=== PATIENT | female | born 1950 | race Caucasian/White ===

== ENCOUNTER 2016-12-06 21:04 | Emergency (ER) | payer MEDICARE, OTHER ==
--- NOTE | 2016-12-06 21:30 | EDM.PDOC ---
ED HPI GENERAL MEDICAL PROBLEM - General Chief Complaint: Abdominal Pain Stated Complaint: nausea,vomiting, abd pain Time Seen by Provider: 12/06/16 21:40 Source of Information: Reports: Patient History Limitations: Reports: No Limitations - History of Present Illness INITIAL COMMENTS - FREE TEXT/NARRATIVE: She states that for the past 2 days she's been sick started with nasal congestion for throat days she started having abdominal cramps with multiple emesis he had an emesis in the ER which was about 100 mL of bile color there was no solid food in Onset: Gradual (For the past 2 days) Onset Date: 12/05/16 Duration: Hour(s):, Getting Worse Location: Reports: Abdomen (Crampy abdominal pain) Quality: Reports: Pressure, Sharp, Stabbing Severity: Severe Improves with: Reports: None Worsens with: Reports: Movement Context: Reports: Sick Contact Associated Symptoms: Reports: Cough, Fever/Chills, Loss of Appetite, Nausea/ Vomiting, Weakness Treatments [employer]IL[employer] 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: Other (See Below) (Status post tubal ligation) ED ROS GENERAL - Review of Systems Review Of Systems: See Below Constitutional: Reports: Chills, Weakness, Decreased Appetite HEENT: Reports: No Symptoms Respiratory: Reports: Shortness of Breath, Cough Cardiovascular: Reports: Other (History of ND unknown) Endocrine: Reports: No Symptoms GI/Abdominal: Reports: Abdominal Pain, Constipation, Decreased Appetite, Nausea , Vomiting : Reports: No Symptoms Musculoskeletal: Reports: No Symptoms Skin: Reports: No Symptoms Neurological: Reports: No Symptoms ED EXAM, GI/ABD - Physical Exam Exam: See Below Exam Limited By: No Limitations General Appearance: Alert, Obtunded, Moderate Distress, Active Emesis Ears: Normal External Exam, Normal Canal, Hearing Grossly Normal, Normal TMs Nose: Normal Inspection, Normal Mucosa, No Blood Head: Atraumatic, Normocephalic Neck: Normal Inspection, Supple Respiratory/Chest: No Respiratory Distress, Lungs Clear, Chest Non-Tender, Decreased Breath Sounds. No: Crackles, Rales, Rhonchi, Wheezing, Stridor, Pleural Rub Cardiovascular: Normal Peripheral Pulses, Regular Rate, Rhythm, No Edema, No JVD , No Murmur GI/Abdominal: Normal Bowel Sounds, Soft, Hyperactive Bowel Sounds, Tenderness, Distention, Guarding (Regarding hypogastric area) Rectal (Female) Exam: Decreased Rectal Tone, Tenderness Back Exam: Normal Inspection Extremities: Normal Inspection, Normal Range of Motion, Non-Tender, Normal Capillary Refill, No Pedal Edema Neurological: Alert, Oriented, CN II-XII Intact, Normal Cognition, Normal Gait, Normal Reflexes, No Motor/Sensory Deficits Psychiatric: Normal Affect, Normal Mood Skin Exam: Warm, Dry, Normal Color, Diaphoretic Lymphatic: No Adenopathy Course - Vital Signs Last Recorded V/S: Last Vital Signs Temp 97.7 F 12/06/16 21:45 Pulse 92 12/06/16 21:45 Resp 26 H 12/06/16 21:45 BP 76/49 L 12/06/16 21:45 Pulse Ox 92 L 12/06/16 21:45 - Orders/Labs/Meds Orders: Active Orders 24 hr Category Date Time Status Abdomen 2V AP Flat Upright [CR] Stat Exams 12/06/16 21:21 Ordered Chest 1V Frontal [CR] Stat Exams 12/06/16 22:43 Ordered CULTURE BLOOD [BC] Stat Lab 12/06/16 22:44 Ordered CULTURE BLOOD [BC] Stat Lab 12/06/16 22:44 Ordered Sodium Chloride 0.9% [Normal Saline] 1,000 ml Med 12/06/16 21:45 Active IV ASDIRECTED Sodium Chloride 0.9% [Saline Flush] Med 12/06/16 21:32 Active 10 ml FLUSH ASDIRECTED PRN Blood Culture x2 Reflex Set [OM.PC] Stat Oth 12/06/16 22:44 Ordered Saline Lock Insert [OM.PC] Stat Oth 12/06/16 21:32 Ordered Medication Orders Sodium Chloride (Normal Saline) 1,000 mls @ 999 mls/hr IV ASDIRECTED HIPOLITO Last Admin: 12/06/16 21:42 Dose: 150 mls/hr Sodium Chloride (Saline Flush) 10 ml FLUSH ASDIRECTED PRN PRN Reason: Keep Vein Open Last Admin: 12/06/16 21:42 Dose: 10 ml Labs: Laboratory Tests 12/06/16 12/06/16 12/06/16 Range/Units 21:35 21:35 21:35 WBC 15.9 H (4.0-10.2) K/uL RBC 5.42 H (3.77-5.09) M/uL Hgb 16.1 H (11.7-15.5) g/dL Hct 48.1 H (34.0-46.0) % MCV 88.7 (84.0-98.0) fL MCH 29.7 (28.2-33.3) pg MCHC 33.5 (31.7-36.0) g/dL RDW 15.5 H (11.2-14.1) % Plt Count 144 L (150-350) K/uL Neut % (Auto) 78.0 (45.0-80.0) % Lymph % (Auto) 14.9 (10.0-50.0) % [place] % (Auto) 6.0 (2.0-14.0) % Eos % (Auto) 0.9 (0.0-5.0) % Baso % (Auto) 0.2 (0.0-2.0) % Neut # (Auto) 12.43 H (1.40-7.00) K/uL Lymph # (Auto) 2.38 (0.50-3.50) K/uL [place] # (Auto) 0.96 (0.00-1.00) K/uL Eos # (Auto) 0.14 (0.00-0.50) K/uL Baso # (Auto) 0.03 (0.00-0.20) K/uL Sodium 141 (136-145) mmol/L Potassium 4.6 (3.5-5.1) mmol/L Chloride 103 (98-107) mmol/L Carbon Dioxide 23.5 (21.0-32.0) mmol/L BUN 29 H (7-18) mg/dL Creatinine 1.49 H (0.51-1.17) mg/dL Est Cr Clr Drug Dosing 37.09 mL/min Estimated GFR (MDRD) 35 mL/min Glucose 130 H (74-106) mg/dL Calcium 9.6 (8.5-10.1) mg/dL Amylase 60 (25-115) U/L Lipase 248 (73-393) U/L Meds: Medications Generic Name Dose Route Start Last Admin Trade Name Sena PRN Reason Stop Dose Admin Sodium Chloride 1,000 mls @ 999 mls/hr 12/06/16 21:45 12/06/16 21:42 Normal Saline IV 150 mls/hr ASDIRECTED HIPOLITO Administration Sodium Chloride 10 ml 12/06/16 21:32 12/06/16 21:42 Saline Flush FLUSH 10 ml ASDIRECTED PRN Administration Keep Vein Open Discontinued Medications Generic Name Dose Route Start Last Admin Trade Name Freq PRN Reason Stop Dose Admin Morphine Sulfate 2 mg 12/06/16 22:21 Morphine IVPUSH 12/06/16 22:22 ONETIME ONE Ondansetron HCl 4 mg 12/06/16 21:34 12/06/16 21:42 Zofran IVPUSH 12/06/16 21:35 4 mg ONETIME ONE Administration Departure - Departure Time of Disposition: 23:06 Disposition: DC/Tfer to [facility] Clinical Impression: Abdominal pain, Bowel obstruction - Discharge Information Referrals: Ai Carlson PA-C [Primary Care Provider] - Forms: ED Department Discharge Care Plan Goals: Transfer patient to a [facility] where surgeries available - My Orders Last 24 Hours: My Active Orders 12/06/16 21:21 Abdomen 2V AP Flat Upright [CR] Stat 12/06/16 21:32 Sodium Chloride 0.9% [Saline Flush] 10 ml FLUSH ASDIRECTED PRN Saline Lock Insert [OM.PC] Stat 12/06/16 21:45 Sodium Chloride 0.9% [Normal Saline] 1,000 ml IV ASDIRECTED 12/06/16 22:43 Chest 1V Frontal [CR] Stat 12/06/16 22:44 CULTURE BLOOD [BC] Stat CULTURE BLOOD [BC] Stat Blood Culture x2 Reflex Set [OM.PC] Stat - Assessment/Plan Last 24 Hours: My Active Orders 12/06/16 21:21 Abdomen 2V AP Flat Upright [CR] Stat 12/06/16 21:32 Sodium Chloride 0.9% [Saline Flush] 10 ml FLUSH ASDIRECTED PRN Saline Lock Insert [OM.PC] Stat 12/06/16 21:45 Sodium Chloride 0.9% [Normal Saline] 1,000 ml IV ASDIRECTED 12/06/16 22:43 Chest 1V Frontal [CR] Stat 12/06/16 22:44 CULTURE BLOOD [BC] Stat CULTURE BLOOD [BC] Stat Blood Culture x2 Reflex Set [OM.PC] Stat Assessment:: dehydration hypotension Abdominal pain Bowel obstruction Leukocytosis unknown etiology Plan: At this time we will hydrate the patient was given normal saline at 999 and responded nicely to bolus flat plate and upright reveal multiple air-fluid levels with dilated loops of bowel and Zofran 4 mg was given for nausea and vomiting Zofran .staff are 1 call was contacted and spoke with Dr. Barriga at this time due to the condition of patient stable we'll transfer by ambulance to [facility]
[2016-12-06] MEDS ORDERED: Sodium Chloride 0.9% 10 ML Syringe FLUSH PRN (21:32)
[2016-12-06] MEDS ORDERED: Ondansetron 4 MG/2 ML SDV IVPUSH ONE (21:34)
[2016-12-06] MEDS ORDERED: Sodium Chloride 0.9% 1,000 ML IV SCH (21:45)
[2016-12-06] MEDS ORDERED: Morphine 2 MG/ML Syringe IVPUSH ONE (22:21)
[2016-12-06 23:12] VITALS: BP 106/71
== END 2016-12-06 23:55 ==
LOC: LL.ED 21:04
DX: K56.60 Unspecified intestinal obstruction (principal); Z88.0 Allergy status to penicillin; Z90.49 Acquired absence of other specified parts of digestive tract
CPT/HCPCS: 36415; 71010; 74020; 80048; 82150; 82272; 83690; 85025; 87040; 96361; 96374; 96375; 99284; 99285; J2270; J2405; J7030; J7050

== ENCOUNTER 2016-12-19 12:31 | Emergency (ER) | payer MEDICARE, OTHER ==
[2016-12-19] MEDS ORDERED: Lactated Ringers 1,000 ML IV ONE (12:42)
[2016-12-19] MEDS ORDERED: Sodium Chloride 0.9% 10 ML Syringe FLUSH PRN (12:42)
[2016-12-19] MEDS ORDERED: Ondansetron 4 MG/2 ML SDV IVPUSH ONE (12:42)
[2016-12-19] MEDS ORDERED: Famotidine 20 MG/2 ML SDV IVPUSH ONE (12:42)
[2016-12-19] MEDS ORDERED: Pantoprazole 40 MG Vial IVPUSH ONE (12:42)
--- NOTE | 2016-12-19 12:42 | EDM.PDOC ---
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 subsequent improvement to the 70s to 90s after pain medications were given. No ectopy or arrhythmia Acute abdominal x-rays shows evidence of moderate COPD changes with additional mild prominence of the proximal aortic arch and mild aortic valve calcification with no cardiomegaly, CHF, pulmonary infiltrates, pneumothorax, etc. Moderate diffuse stool and gaseous distention was present with multiple fluid levels and some evidence of possible calcification of her AAA. No free air. Moderate osteoarthritic changes, including coxarthrosis, etc. KUB, one view, after NG tube placement shows findings as above with NG tube in proper position Departure - Departure Time of Disposition: 15:38 Disposition: DC/Tfer to Acute Hospital 02 Condition: Fair Clinical Impression: Ischemic colitis, Ileus, Renal insufficiency, COPD (chronic obstructive pulmonary disease), Osteoarthritis, Peptic reflux disease, Tobacco abuse counseling, Intestinal angina, Coronary artery disease, AAA (abdominal aortic aneurysm), Hypertension, D-dimer, elevated - Discharge Information Referrals: Ai Carlson PA-C [Primary Care Provider] - Forms: ED Department Discharge, Interfacility Transfer EMTALA - Problem List & Annotations (1) Ileus SNOMED Code(s): 628342471 Code(s): K56.7 - ILEUS, UNSPECIFIED Status: Acute Priority: High Onset Date: 12/19/16 Annotation/Comment:: History of recurrent ileus and obstruction likely secondary to ischemic colitis. Secondary to history of recent ischemic colitis IV Rocephin and IV Flagyl therapy was initiated in the emergency room. Telephone consultation initially at 13:[address] Alford, hospitalist at [facility], who is requesting that I talk with the general surgeon for further orders and possible admission subsequent telephone consultation at 14:00 and 14:[address] Claros, general surgeon at [facility], who does accept the patient for direct admission into their facility, with no further treatment recommendations given. He is in agreement with NG tube placement and delay of repeat CT scan of the abdomen for now with likely planned vascular surgical consultation and immediate further workup in their facility on arrival. Vital signs were stable and pain under excellent control prior to transfer. Some delay in patient transfer secondary to bed and ambulance availability without sequellae. 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 Likely vascular surgical consultation as above (3) Ischemic colitis SNOMED Code(s): 06619925 Code(s): K55.9 - VASCULAR DISORDER OF INTESTINE, UNSPECIFIED Status: Acute Priority: High Onset Date: 12/19/16 Annotation/Comment:: Likely beginning recurrence of her ischemic colitis, although patient is afebrile with negative Hemoccult and normal CBC at this time. IV antibiotic therapy as above with patient apparently previously tolerating IV Rocephin therapy during recent hospitalization at [facility] by her history despite history of allergy to penicillin. Further GI workup depending on her clinical course (4) AAA (abdominal aortic aneurysm) SNOMED Code(s): 473572548 Code(s): I71.4 - ABDOMINAL AORTIC ANEURYSM, WITHOUT RUPTURE Status: Chronic Priority: High Onset Date: ~12/08/16 Annotation/Comment:: No evidence of acute rupture with newly diagnosed AAA as above. Likely vascular surgical consultation shortly after admission as above Qualifiers: Presence of rupture: without rupture Qualified Code(s): I71.4 - Abdominal aortic aneurysm, without rupture (5) Coronary artery disease SNOMED Code(s): 23986293 Code(s): I25.10 - ATHSCL HEART DISEASE OF [place] CORONARY ARTERY W/O ANG PCTRS Status: Chronic Priority: Medium Annotation/Comment:: No recent chest pain or anginal type symptoms with previous history of distant [place] as above Qualifiers: Coronary Disease-Associated Artery/Lesion type: [place] artery [place] vs. transplanted heart: [place] heart Associated angina: without angina Qualified Code(s): I25.10 - Atherosclerotic heart disease of [place] coronary artery without angina pectoris (6) COPD (chronic obstructive pulmonary disease) SNOMED Code(s): 43441295 Code(s): J44.9 - CHRONIC OBSTRUCTIVE PULMONARY DISEASE, UNSPECIFIED Status : Chronic Priority: Medium Annotation/Comment:: Stable by history with no recent fever or headache-type symptoms. No current medical therapy at this time. Note continued chronic tobacco use. Consider repeat PFTs once her status has improved Qualifiers: COPD type: emphysema Emphysema type: panlobular Qualified Code(s): J43.1 - Panlobular emphysema (7) Osteoarthritis SNOMED Code(s): 756163703 Code(s): M19.90 - UNSPECIFIED OSTEOARTHRITIS, UNSPECIFIED SITE Status: Chronic Priority: Medium Annotation/Comment:: Stable by patient history Qualifiers: Osteoarthritis location: multiple joints Osteoarthritis type: primary Qualified Code(s): M15.0 - Primary generalized (osteo)arthritis (8) Peptic reflux disease SNOMED Code(s): 24106093 Code(s): K21.9 - GASTRO-ESOPHAGEAL REFLUX DISEASE WITHOUT ESOPHAGITIS Status: Chronic Priority: Medium Annotation/Comment:: Stable by patient history with high-dose IV Protonix and IV Pepcid given as GI prophylaxis (9) Renal insufficiency SNOMED Code(s): 678047161, 918386509 Code(s): N28.9 - DISORDER OF KIDNEY AND URETER, UNSPECIFIED Status: Chronic Priority: Medium Annotation/Comment:: History of acute renal failure during recent hospitalization as above with normal renal function at this time. Patient amenable to vascular evaluation secondary to improve renal function. IV bolus of lactated Ringer's initiated shortly prior to patient's transfer with previous IV antibiotic therapy as above (10) Tobacco abuse counseling SNOMED Code(s): 529525082, 826573180, 767279543 Code(s): Z71.6 - TOBACCO ABUSE COUNSELING Status: Chronic Priority: Medium Annotation/Comment:: Tobacco cessation strongly encouraged with patient trying to quit smoking at this time (11) Hypertension SNOMED Code(s): 09637805 Code(s): I10 - ESSENTIAL (PRIMARY) HYPERTENSION Status: Chronic Priority : Medium Annotation/Comment:: Improved blood pressure with IV pain medications as above Qualifiers: Hypertension type: essential hypertension Qualified Code(s): I10 - Essential (primary) hypertension (12) D-dimer, elevated SNOMED Code(s): 168010080 Code(s): R79.89 - OTHER SPECIFIED ABNORMAL FINDINGS OF BLOOD CHEMISTRY Status: Acute Priority: High Onset Date: 12/19/16 Annotation/Comment:: Note AAA and abdominal artery stenosis/occlusions as above. No clinical evidence of PE or DVT. - Problem List Review Problem List Initiated/Reviewed/Updated: Yes - My Orders Last 24 Hours: My Active Orders 12/19/16 12:42 Peripheral IV Care [RC] . DIRECTED Abdomen Series w Chest 1V [CR] Stat OCCULT BLOOD DIAGNOSTIC [OP] Stat Blood Culture x2 Reflex Set [OM.PC] Urgent Obtain Past Medical Record [OM.PC] Urgent Peripheral IV Insertion Adult [OM.PC] Stat Resuscitation Status Stat 12/19/16 12:43 Cardiac Monitoring [RC] . DIRECTED 12/19/16 12:55 CULTURE BLOOD [BC] Stat 12/19/16 13:10 CULTURE BLOOD [BC] Stat 12/19/16 13:20 Oxygen Therapy [RC] CONTINUOUS 12/19/16 14:21 NG [Nasogastric Orogastric Tube Insertion] [OM.PC] Routine 12/19/16 14:22 Abdomen 1V Flat [CR] Stat - Assessment/Plan Last 24 Hours: My Active Orders 12/19/16 12:42 Peripheral IV Care [RC] . DIRECTED Abdomen Series w Chest 1V [CR] Stat OCCULT BLOOD DIAGNOSTIC [OP] Stat Blood Culture x2 Reflex Set [OM.PC] Urgent Obtain Past Medical Record [OM.PC] Urgent Peripheral IV Insertion Adult [OM.PC] Stat Resuscitation Status Stat 12/19/16 12:43 Cardiac Monitoring [RC] . DIRECTED 12/19/16 12:55 CULTURE BLOOD [BC] Stat 12/19/16 13:10 CULTURE BLOOD [BC] Stat 12/19/16 13:20 Oxygen Therapy [RC] CONTINUOUS 12/19/16 14:21 NG [Nasogastric Orogastric Tube Insertion] [OM.PC] Routine 12/19/16 14:22 Abdomen 1V Flat [CR] Stat Assessment:: As above Plan: As above. Extensive precautions were given to the patient and her daughter, who are in agreement with the treatment plan. 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
[2016-12-19] MEDS ORDERED: cefTRIAXone 1 GM in Sodium Chloride 0.9% 100 ML IV SCH (13:00)
[2016-12-19 13:13] LABS: CHLORIDE,CL 101 mmol/L (98-107); SODIUM,NA 137 mmol/L (136-145)
[2016-12-19] MEDS ORDERED: HYDROmorphone 1 MG/ML Syringe IVPUSH ONE (13:44)
[2016-12-19] MEDS ORDERED: metroNIDAZOLE/Normal Saline 500 MG in Premix Bag 1 BAG IV SCH (14:00)
[2016-12-19 15:44] VITALS: BP 113/67
== END 2016-12-19 15:38 ==
LOC: LL.ED 12:31
DX: K56.7 Ileus, unspecified (principal); K55.9 Vascular disorder of intestine, unspecified; N28.9 Disorder of kidney and ureter, unspecified; I71.4 Abdominal aortic aneurysm, without rupture; K21.9 Gastro-esophageal reflux disease without esophagitis; I10 Essential (primary) hypertension; M19.90 Unspecified osteoarthritis, unspecified site; J44.9 Chronic obstructive pulmonary disease, unspecified; I25.10 Atherosclerotic heart disease of native coronary artery without angina pectoris; R79.89 Other specified abnormal findings of blood chemistry; Z71.6 Tobacco abuse counseling; F17.210 Nicotine dependence, cigarettes, uncomplicated; I25.2 Old myocardial infarction; Z98.890 Other specified postprocedural states; Z98.51 Tubal ligation status; Z79.82 Long term (current) use of aspirin; Z79.899 Other long term (current) drug therapy; Z88.0 Allergy status to penicillin
CPT/HCPCS: 36415; 74000; 74022; 80053; 82150; 82272; 83605; 83690; 83735; 84550; 85025; 85379; 85610; 85730; 87040; 94761; 96365; 96367; 96375; 99285; C9113; J0696; J1170; J2405; J7050; J7120; 43752; S0028